=== PATIENT | male | born 1955 | race Caucasian/White ===

== ENCOUNTER 2022-07-22 09:45 | Outpatient (RCR) | payer OTHER, SELFPAY | END 2022-09-22 12:30 | disposition home or self-care (01) | PROVIDERS: PCP Family Medicine; Visit Provider Family Medicine | DX: M54.12 Radiculopathy, cervical region (principal); Z51.89 Encounter for other specified aftercare | CPT/HCPCS: 97012; 97110; 97140; 97161 ==